=== PATIENT | male | born 1930 | race Caucasian/White ===

== ENCOUNTER 2016-10-25 20:33 | Emergency (ER) | payer MEDICARE, BC ==
[2016-10-25 21:08] LABS: URINE MUCUS NONE SEEN (Up to 25%); URINE SQUAMOUS EPITHELIAL CELL NONE SEEN (<= 15/hpf)
[2016-10-25 21:15] LABS: BASOPHIL# 0.1 X 10^3uL (0.0-0.1); BASOPHILS 1.1 % (0.0-2.0); EOSINOPHILS 7.3 % (0.0-6.0); EOSINOPHILS# 0.5 X 10^3uL (0.0-0.4); HEMOGLOBIN 15.3 g/dL (14.0-18.0); LYMPHOCYTES 23.5 % (20.0-40.0); LYMPHOCYTES# 1.5 X 10^3uL (0.8-3.8); MEAN CELL VOLUME 88.1 fL (80.0-100.0); MEAN PLATELET VOLUME 7.8 fL (7.4-10.4); MONOCYTES 11.4 % (2.0-10.0); MONOCYTES# 0.7 X 10^3uL (0.2-1.0); NEUTROPHILS 56.7 % (54.0-75.0); NEUTROPHILS# 3.6 X 10^3uL (2.6-6.7); PLATELET COUNT 166 X 10^3uL (130-440); RED BLOOD COUNT 5.11 X 10^6uL (4.20-6.10); RED CELL DISTRIBUTION WIDTH 11.8 % (11.5-14.5); WHITE BLOOD COUNT 6.4 X 10^3uL (3.9-10.7)
[2016-10-25 21:20] LABS: URINE APPEARANCE SLIGHTLY CLOUDY; URINE COLOR RED; URINE LEUKOCYTE ESTERASE NEGATIVE (NEGATIVE); URINE NITRITE NEGATIVE (NEGATIVE); URINE PH 5.5 (5-7)
[2016-10-25 21:21] LABS: URINE BACTERIA <10 ORGANISMS/hpf (<10/hpf); URINE BILIRUBIN 0.5 mg/100ml (1+) (NEGATIVE); URINE BLOOD 250 Ery/uL (3+) (NEGATIVE); URINE GLUCOSE NORMAL (NEGATIVE); URINE KETONE NEGATIVE (NEGATIVE); URINE PROTEIN 100mg/dL (2+) (NEG - TRACE); URINE UROBILINOGEN 0.2mg/dL (Normal) (NEG-1mg/dL); URINE WBC 0-4/hpf (0-4/hpf)
[2016-10-25 21:24] LABS: BLOOD UREA NITROGEN 23 mg/dL (9-20); CALCIUM 9.6 mg/dL (8.4-10.2); CHLORIDE 104 mmol/L (98-107); CREATININE 1.2 mg/dL (0.7-1.3); GLUCOSE 120 mg/dL (70-100); POTASSIUM 4.3 mmol/L (3.5-5.1); SODIUM 138 mmol/L (137-145)
--- NOTE | 2016-10-25 21:58 | ER NURSING DOCUMENTATION ---
Nurse's Notes [facility] Name:Yonas Griggs Age:86 yrs Sex:Male :1930 Arrival Date:10/25/2016 Time:20:33 Bed4 Private MD:Yumiko Hernandez Diagnosis:Hematuria, Gross Presentation: 10/25 20:36 Acuity: LUPE 3 20:49 Presenting complaint: Patient states: pink urine for 3-4 days without pain, today rh patient stated the urine was slightly more pink than it has been. PT denies pain. He states he is lightheaded at times. Pt was diagnosed with Kidney stones years ago, however his urologist said they wouldn't move, due to placement. Transition of care: Home. 20:49 Method Of Arrival: Walk In Triage Assessment: 21:00 General: Appears in no apparent distress, Behavior is cooperative. Pain: Denies pain. rh EENT: Oral mucosa is moist. Neuro: Level of Consciousness is awake, alert, obeys commands. Cardiovascular: Capillary refill < 3 seconds Chest pain is denied. Respiratory: Airway is patent. GI: Abdomen is non- distended Denies nausea, pain, vomiting. : Urine is blood tinged, Last void was October 25, 2016. at 21:01. Reports urinary frequency Denies burning with urination, inability to void, pain. Derm: Skin is intact, is healthy with good turgor, Skin is pink, warm & dry. Historical: - Allergies: No known drug Allergies; - Home Meds: 1. losartan oral - PMHx: Hypertension; - PSHx: None; - Tetanus: < 10 years. - Ebola Screening: : Patient negative for fever greater than or equal to 101.5 degrees Fahrenheit, and additional compatible Ebola Virus Disease symptoms. - Immunization history: Flu Vaccine < 1 year. - Social history: Smoking status: Patient states was never smoker of tobacco. Screenin:02 Infectious Disease Risk None. Abuse screen: Denies threats or abuse. Denies injuries rh from another. Nutritional screening: No deficits noted. Assessment: 21:02 See Triage Assessment done by same RN. Vital Signs: 20:45 BP 152 / 75; Pulse 75; Resp 17; Temp 97.6; Pulse Ox 93% on R/A; Pain 0/10; rh 21:57 BP 110 / 65; Pulse 85; Resp 16; Pulse Ox 94% on R/A; Pain 0/10; rh ED Course: 20:35 Patient arrived in ED. ma1 20:35 Yumiko Hernandez MD is Private Physician. ma1 20:35 Notified ED Physician of patient's arrival and chief complaint. Dr. Byrd notified. rh 20:36 Triage completed. rh 20:37 Enrico Byrd MD is Attending Physician. gorge 20:49 Sia Dobbs is Primary Nurse. rh 21:02 Valuables Remains with patient Patient has correct armband on for positive rh identification. Bed in low position. Call light in reach. Side rails up X 1. 21:37 Patient moved to radiology. nicky 21:37 Patient moved back from radiology. nicky 21:50 Dillon Dorsey MD is Referral Physician. gorge Administered Medications: No medications were administered Outcome: 21:50 Discharge ordered by MD. 21:57 Discharged to home ambulatory, with family. 21:57 Condition: stable 21:57 Discharge Assessment: Patient awake, alert and oriented x 3. No cognitive and/or functional deficits noted. Patient verbalized understanding of disposition instructions. 21:57 Discharge instructions given to patient, family, Instructed on discharge instructions, follow up and referral plans. Demonstrated understanding of instructions. 21:57 Patient left the ED. 10/26 09:31 Discharge F/U Call: Spoke with: patient. Did your discharge instructions answer all ke of your questions? yes Have you made a f/u appointment? yes Overall Care on a scale of 1-10 with 10 being the best care, you rate our care as: Other comments: satisfied with care Signatures: Enrico Byrd MD MD jm Abbott, Sia Zarate Tatianna Banuelos, RN RN Rosaline Aguirre [facility]
--- NOTE | 2016-10-25 21:58 | ER PHYSICIAN DOCUMENTATION ---
Physician Documentation [facility] Name:Yonas Griggs Age:86 yrs Sex:Male :1930 Arrival Date:10/25/2016 Time:20:33 Bed4 Private MD:Yumiko Hernandez ED, John Disposition: 10/25/16 21:50 Discharged to Home/Self Care. Impression: Hematuria, Gross. - Condition is Good. - Discharge Instructions: blood in urine - HEMATURIA. - Medical Reconciliation form form. - Follow up: Dillon Dorsey MD; When: schedule an appointment JEM. ; Reason: Recheck today's complaints, Continuance of care. - Problem is new. - Symptoms have improved. HPI: 10/25 21:18 This 86 yrs old Male presents to ER via Walk In with complaints of Urinary jm Problem - BLOOD IN URINE. 21:18 The patient presents with urinary symptoms, hematuria . Onset: The symptom(s)/episode jm began/occurred 2 day(s) ago, and became worse today. Modifying factors: the symptoms are aggravated by urinating. Associated signs and symptoms: Pertinent negatives: abdominal pain, fever, nausea, vomiting. Severity of symptoms: in the emergency department the symptoms are unchanged. The patient has not experienced similar symptoms in the past. The patient has not recently seen a physician. 86 yo M w hx of R sided kidney stone that Dr. Dorsey said would probably never give him trouble here for hematuria that his worsened for the past 2 days. He is not urinating a dark Koolaid type of urine. No dysuria, flank pain, fever, wt loss, or any other sx. . Historical: - Allergies: No known drug Allergies; - Home Meds: 1. losartan oral - PMHx: Hypertension; - PSHx: None; - Tetanus: < 10 years. - Ebola Screening: : Patient negative for fever greater than or equal to 101.5 degrees Fahrenheit, and additional compatible Ebola Virus Disease symptoms. - Immunization history: Flu Vaccine < 1 year. - Social history: Smoking status: Patient states was never smoker of tobacco. ROS: 21:20 Constitutional: Negative for fatigue, fever. jm 21:20 Back: Negative for pain with movement, radiated pain. 21:20 : Positive for hematuria, Negative for urinary frequency, pelvic pain, flank pain, burning with urination, difficulty urinating, penile pain. 21:20 Hematologic/Lymphatic: Negative for anemia. Exam: 21:21 Constitutional: The patient appears alert, awake, comfortable. 21:21 Cardiovascular: Rate: normal, Rhythm: regular. 21:21 Abdomen/GI: Bowel sounds: normal, Palpation: abdomen is soft and non-tender. 21:21 Back: pain, is absent, CVA tenderness, is absent. 21:21 : CVA tenderness, is absent, Bladder: is normal, tenderness, is not appreciated. Vital Signs: 20:45 BP 152 / 75; Pulse 75; Resp 17; Temp 97.6; Pulse Ox 93% on R/A; Pain 0/10; rh 21:57 BP 110 / 65; Pulse 85; Resp 16; Pulse Ox 94% on R/A; Pain 0/10; rh MDM: 20:37 Patient medically screened. 21:22 Differential diagnosis: UTI, hematuria from stone or cancer. Data reviewed: vital jm signs, nurses notes, and as a result, I will initiate a consult, with a urologist. Counseling: I had a detailed discussion with the patient and/or guardian regarding: the historical points, exam findings, and any diagnostic results supporting the discharge/admit diagnosis, the need for outpatient follow up, a urologist. 10/25 21:21 Order name: CBC AUTO DIF, MDIF/RMOR IF IND; Complete Time: 21:37 EDMS 10/25 21:22 Order name: UA W/ MICRO -CULTURE IF IND; Complete Time: 21:37 EDMS 10/25 21:26 Order name: BASIC METABOLIC PANEL; Complete Time: 21:37 EDMS Dispensed Medications: No medications were administered Signatures: Enrico Byrd MD MD jm Hofsess, Rachel
--- NOTE | 2016-10-26 00:15 | RADIOLOGY REPORT ---
HISTORY: Hematuria, history of right kidney stone. COMPARISON: None. FINDINGS: Single abdominal radiograph provided. There is an ovoid 7 mm calcification projecting in the region o f the right kidney. There are multiple phleboliths in the pelvis. 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 Bowel gas pattern is unremarkable. IMPRESSION: 1. Ovoid 7 mm calcification projecting over right kidney is suspicious for a renal calculus. This cou ld be confirmed with a CT renal stone protocol if indicated. Final Electronic Signature: This report was electronically signed by Antione Hamron MD on 10/26/2016 1 2:12 AM. [email or web address] /
== END 2016-10-25 21:58 | disposition home or self-care (01) ==
LOC: ER 20:33
DX: R31.0 Gross hematuria (principal); Z87.442 Personal history of urinary calculi; I10 Essential (primary) hypertension; Z79.899 Other long term (current) drug therapy
CPT/HCPCS: 74000; 80048; 81001; 85025; 99283